=== PATIENT | male | born 1980 | race Caucasian/White ===

== ENCOUNTER 2017-10-08 08:45 | Day surgery (SDC) | payer BC ==
[~2017-10-08] VITALS: Ht 182.9 cm; Wt 88.7 kg
[2017-10-08 08:26] VITALS: BP 135/98; PULSE 81; TEMP 98.3
[~2017-10-08 08:45] MED LIST: NORCO 325 MG-7.1 TAB PO
[2017-10-08 10:20] VITALS: BP 127/89; PULSE 90; TEMP 97.4
[2017-10-08 10:35] VITALS: BP 129/98; PULSE 93
[2017-10-08 10:50] VITALS: BP 139/90; PULSE 87
== END 2017-10-08 11:35 | disposition home or self-care (01) ==
LOC: SDCO 08:45
DX: K92.1 Melena (principal); Z80.0 Family history of malignant neoplasm of digestive organs; K64.0 First degree hemorrhoids; K59.00 Constipation, unspecified
CPT/HCPCS: J2250; J2405; J3010; J7030